=== PATIENT | male | born 2000 | race Caucasian/White ===

== ENCOUNTER 2021-06-08 23:19 | Emergency (ER) | payer SELFPAY ==
[2021-06-09] MEDS ORDERED: CEPHALEXIN500 M1 PO (03:57)
== END 2021-06-09 04:25 | disposition home or self-care (01) ==
LOC: ER1 23:19
DX: S62.634B Displaced fracture of distal phalanx of right ring finger, initial encounter for open fracture (principal); F41.9 Anxiety disorder, unspecified; F17.290 Nicotine dependence, other tobacco product, uncomplicated; X58.XXXA Exposure to other specified factors, initial encounter
CPT/HCPCS: 12032; 73130; 99283